=== PATIENT | male | born 1965 | race Caucasian/White ===

== ENCOUNTER 2017-09-07 02:08 | Observation (INO) | payer OTHER ==
[~2017-09-07] VITALS: Ht 185.4 cm; Wt 108.9 kg
[2017-09-07 02:11] VITALS: BP 160/80
[2017-09-07] MEDS ORDERED: AZITHROMYCIN 2250 MG PO (02:13)
[2017-09-07 02:48] LABS: ABSOLUTE BASOPHILS 0.1 thou/uL (0.0-0.2); ABSOLUTE EOSINOPHILS 0.1 thou/uL (0.0-0.7); ABSOLUTE LYMPHOCYTES 2.2 thou/uL (0.8-5.3); ABSOLUTE MONOCYTES 0.9 thou/uL (0.0-1.2); ABSOLUTE NEUTROPHILS 14.1 thou/uL (1.6-8.1); BASOPHILS 0.8 %; EOSINOPHILS 0.6 %; HEMATOCRIT 44.4 % (42.0-52.0); HEMOGLOBIN 15.1 gm/dL (14.0-18.0); LYMPHOCYTES 12.8 %; MCH 32.2 pg (26.0-34.0); MCV 94.6 fL (80.0-100.0); MONOCYTES 5.2 %; MPV 7.9 fl. (7.2-11.1); NUCLEATED RBCS 0 /100WBC; PLATELET COUNT* 264 thou/uL (150-400); POLYS 80.6 %; RBC 4.69 mil/uL (4.50-6.00); RDW-CV 12.2 % (10.5-14.5); WBC 17.4 thou/uL (4.0-11.0)
[2017-09-07 02:54] LABS: ANION GAP 9 mmol/L (7-16); BUN 17 mg/dL (7-18); CALCIUM 8.6 mg/dL (8.5-10.1); CHLORIDE 103 mmol/L (98-107); CO2 29 mmol/L (21-32); CREATININE 1.2 mg/dL (0.6-1.3); GLUCOSE 132 mg/dL (70-99); POTASSIUM 3.4 mmol/L (3.5-5.1); SODIUM 141 mmol/L (136-145)
[2017-09-07 03:00] LABS: ALBUMIN 3.7 g/dL (3.4-5.0); ALKALINE PHOSPHATASE 81 U/L (46-116); LIPASE 156 U/L (73-393); SGOT 30 U/L (15-37); SGPT 45 U/L (30-65); TOTAL BILIRUBIN 0.4 mg/dL (<0.1-1.0); TOTAL PROTEIN 7.3 g/dL (6.4-8.2); TROPONIN-I LEVEL <0.06 ng/mL (<0.06)
[2017-09-07 04:57] LABS: URINE BILIRUBIN NEGATIVE (Negative); URINE BLOOD 1+ (Negative); URINE CLARITY CLEAR; URINE COLOR YELLOW; URINE GLUCOSE-RANDOM NEGATIVE (Negative); URINE KETONES 2+ (Negative); URINE LEUKOCYTES-REFLEX NEGATIVE (Negative); URINE NITRITE-REFLEX NEGATIVE (Negative); URINE PROTEIN NEGATIVE (Negative); URINE UROBILINOGEN 0.2 E.U./dl (0.2-1.0)
[2017-09-07 05:21] LABS: SQUAMOUS 0-3 Few /LPF (0-3)
[2017-09-07 05:22] LABS: BACTERIA-REFLEX 1-9 Few /HPF (None Seen); CASTS None Seen /LPF (None Seen); CRYSTALS None Seen /LPF (None Seen); URINE RBC 3-10 Few /HPF (0-2); URINE WBC-REFLEX 0-5 Rare /HPF (0-5)
--- NOTE | 2017-09-07 12:50 | EKG ---
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 : 1965 Requested By: Peter Da Silva Order Number: [id number] MD: Casa Mejias Measurements Intervals Jenners Rate: 66 P: 71 MI: 176 QRS: 77 QRSD: 115 T: 23 QT: 416 QTc: 436 Interpretive Statements Sinus rhythm Abnormal inferior Q waves ST elev, probable normal early repol pattern No previous ECG available for comparison Electronically Signed On 09-07-2017 12:49:51 EN[employer]ELOPE [employer]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
[2017-09-07 16:35] VITALS: BP 114/74
[2017-09-07 20:10] VITALS: BP 115/67
[2017-09-08 03:50] LABS: HEMATOCRIT 41.1 % (42.0-52.0); MCH 32.1 pg (26.0-34.0); MCV 94.5 fL (80.0-100.0); MPV 8.2 fl. (7.2-11.1); RBC 4.34 mil/uL (4.50-6.00); RDW-CV 12.3 % (10.5-14.5); WBC 11.6 thou/uL (4.0-11.0)
[2017-09-08 04:01] LABS: ALBUMIN 3.1 g/dL (3.4-5.0); CALCIUM 8.2 mg/dL (8.5-10.1); MAGNESIUM 1.7 mg/dL (1.8-2.4); POTASSIUM 3.9 mmol/L (3.5-5.1); TOTAL BILIRUBIN 0.4 mg/dL (<0.1-1.0); TOTAL PROTEIN 5.7 g/dL (6.4-8.2)
[2017-09-08] MEDS ORDERED: OMEPRAZOLE40 MG PO (08:07)
[2017-09-08] MEDS ORDERED: SENNA-DOCUSATE1 EACH PO (08:07)
[2017-09-08 09:54] VITALS: BP 115/67
== END 2017-09-08 10:00 | disposition home or self-care (01) ==
LOC: M.ERS 02:08 → M.TBA-ER 04:11 → M.3W 04:11
PROVIDERS: Family Medicine; Internal Medicine; ADMIT Internal Medicine
DX: R10.12 Left upper quadrant pain (principal); K80.10 Calculus of gallbladder with chronic cholecystitis without obstruction; A41.9 Sepsis, unspecified organism; J40 Bronchitis, not specified as acute or chronic; J11.1 Influenza due to unidentified influenza virus with other respiratory manifestations; E87.6 Hypokalemia; R65.10 Systemic inflammatory response syndrome (SIRS) of non-infectious origin without acute organ dysfunction; F17.210 Nicotine dependence, cigarettes, uncomplicated